=== PATIENT | female | born 1945 | race Caucasian/White ===

== ENCOUNTER 2018-08-31 09:36 | Emergency (ER) | payer MEDICARE, BC ==
[~2018-08-31] VITALS: Ht 157.5 cm; Wt 99.1 kg
[2018-08-31] MEDS ORDERED: TENORMIN PO (09:55)
[2018-08-31] MEDS ORDERED: HYDROCHLOROT25 MG PO (09:55)
[2018-08-31] MEDS ORDERED: PRAMIPEXOLE0.5 MG PO (09:56)
[2018-08-31] MEDS ORDERED: ATORVASTATIN CA40 MG PO (09:56)
[2018-08-31] MEDS ORDERED: ASPIRIN81 MG PO (09:56)
[2018-08-31] MEDS ORDERED: CITALOPRAM40 MG PO (09:56)
[2018-08-31] MEDS ORDERED: OMEPRAZOLE20 M2 PO (09:57)
[2018-08-31] MEDS ORDERED: MULTI VIT PO (09:57)
[2018-08-31 10:36] LABS: HEMATOCRIT 27.6 % (37.0-47.0); HEMOGLOBIN 9.4 g/dl (12.0-16.0); IMMATURE GRANULOCYTES 0.5 % (0.0-5.0); MEAN CORPUSCULAR HGB 34.7 pG CALC (26.0-32.0); MEAN CORPUSCULAR HGB CONC 34.1 g/L CALC (32.0-36.0); NEUT# 2.47 thou/uL (2.00-7.15); RED BLOOD COUNT 2.71 mill/uL (4.20-5.60); RED CELL DISTRI WIDTH 13.7 % (11.5-15.5)
[2018-08-31 10:40] LABS: MEAN CELL VOLUME 101.8 fL CALC (80.0-100.0)
[2018-08-31 10:57] LABS: URINE BILIRUBIN - DIPSTICK NEGATIVE (NEGATIVE); URINE BLOOD DIPSTICK NEGATIVE (NEGATIVE); URINE COLOR YELLOW; URINE GLUCOSE - DIPSTICK NEGATIVE (NEGATIVE); URINE KETONE NEGATIVE (NEGATIVE); URINE PROTEIN - DIPSTICK NEGATIVE (NEG-TRACE); URINE SPECIFIC GRAVITY <=1.005; URINE UROBILINOGEN - DIPSTICK 0.2 E.U./dL (0.2)
[2018-08-31 11:04] LABS: ALBUMIN 3.6 g/dL (3.2-5.0); ALKALINE PHOSPHATASE 79 u/l (38-126); ANION GAP 11 (6-22 (CALC)); BILIRUBIN, TOTAL 0.4 mg/dL (0.0-1.4); BUN 17 mg/dL (8-23); BUN/CREATININE RATIO 20 (12-20 (CALC)); CARBON DIOXIDE 29 mmol/l (22-30); CHLORIDE 100 mmol/l (95-108); CREATININE 0.9 mg/dL (0.5-1.0); GFR > 60 ML/MIN (>=60 (CALC)); GFR FOR AFR.AMER. > 60 ML/MIN (>=60 (CALC)); POTASSIUM 3.8 mmol/l (3.5-5.1); SGOT/AST 29 u/l (9-36); SODIUM 137 mmol/l (137-146); TOTAL PROTEIN 6.6 g/dL (6.3-8.2)
[2018-08-31 11:05] LABS: URINE CLARITY CLOUDY; URINE LEUK ESTERASE SMALL (NEGATIVE); URINE NITRITE - DIPSTICK POSITIVE (Negative)
[2018-08-31 11:19] LABS: URINE BACTERIA MANY hpf; URINE SQUAMOUS EPITHELIAL CELL FEW EPI/hpf (0-FEW)
[2018-08-31] MEDS ORDERED: PROVENTIL108 MCG/AC IN (11:52)
[2018-08-31] MEDS ORDERED: LEVAQUIN750 MG PO (11:52)
[2018-08-31 11:58] VITALS: BP 140/64
== END 2018-08-31 12:00 | disposition home or self-care (01) ==
LOC: ED 09:36
PROVIDERS: Emergency Medicine
DX: N39.0 Urinary tract infection, site not specified (principal); R05 Cough; J40 Bronchitis, not specified as acute or chronic; R50.9 Fever, unspecified; R30.0 Dysuria; B96.4 Proteus (mirabilis) (morganii) as the cause of diseases classified elsewhere

== ENCOUNTER 2020-11-22 06:05 | Inpatient (IN) | payer MEDICARE, BC ==
[2020-11-22] VITALS (9 sets, daily range): BP systolic 142–149; BP diastolic 64–79
[~2020-11-22] VITALS: Ht 157.5 cm; Wt 86.2 kg
[~2020-11-22 06:05] MED LIST: ASPIRIN81 MG PO; ATORVASTATIN CA40 MG PO; CITALOPRAM40 MG PO; HYDROCHLOROT25 MG PO; IBRANCE PO; IBUPROFEN200 MG PO; IPRATROPIUM BROMIDE IN; LEVAQUIN750 MG PO; MULTI VIT PO; OMEPRAZOLE20 M2 PO; PRAMIPEXOLE DI0.5 MG PO; PROVENTIL108 MCG/AC IN; TENORMIN PO
[2020-11-23] VITALS: BP 129/63
[2020-11-23 04:22] VITALS: BP 156/66
[2020-11-23 05:56] LABS: HEMATOCRIT 29.1 % (37.0-47.0); HEMOGLOBIN 9.7 g/dl (12.0-16.0)
[2020-11-23 08:35] VITALS: BP 151/81
[2020-11-23 08:41] VITALS: BP 151/81
== END 2020-11-23 14:26 | disposition home health service (06) | DRG 470 ==
LOC: ORM 06:05 → MS2 10:45 → ORM 13:45 → MS2 11-23 14:26
PROVIDERS: ADMIT Internal Medicine; ATTEND Orthopaedic Surgery
PROC: 0SRC0J9 Replacement of Right Knee Joint with Synthetic Substitute, Cemented, Open Approach (ICD-10-PCS; principal; 2020-11-22)
PROC: 3E0T3BZ Introduction of Anesthetic Agent into Peripheral Nerves and Plexi, Percutaneous Approach (ICD-10-PCS; 2020-11-22)
DX: M17.11 Unilateral primary osteoarthritis, right knee (principal); M70.42 Prepatellar bursitis, left knee; I10 Essential (primary) hypertension; J44.9 Chronic obstructive pulmonary disease, unspecified; K59.00 Constipation, unspecified; E78.5 Hyperlipidemia, unspecified; K44.9 Diaphragmatic hernia without obstruction or gangrene; G25.81 Restless legs syndrome; K21.9 Gastro-esophageal reflux disease without esophagitis; Z85.3 Personal history of malignant neoplasm of breast; Z87.891 Personal history of nicotine dependence; Z96.652 Presence of left artificial knee joint; Z20.822 Contact with and (suspected) exposure to COVID-19
CPT/HCPCS: J0131

== ENCOUNTER 2021-08-28 13:07 | Emergency (ER) | payer MEDICARE, BC ==
[~2021-08-28] VITALS: Ht 157.5 cm; Wt 86.4 kg
[2021-08-28 14:00] LABS: HEMATOCRIT 32.4 % (37.0-47.0); HEMOGLOBIN 10.6 g/dl (12.0-16.0); IMMATURE GRANULOCYTES 0.3 % (0.0-5.0); MEAN CELL VOLUME 105.5 fL CALC (80.0-100.0); MEAN CORPUSCULAR HGB 34.5 pG CALC (26.0-32.0); MEAN CORPUSCULAR HGB CONC 32.7 g/dL CAL (32.0-36.0); NEUT# 2.41 thou/uL (2.00-7.15); RED BLOOD COUNT 3.07 mill/uL (4.20-5.60); RED CELL DISTRI WIDTH 14.7 % (11.5-15.5)
[2021-08-28 14:13] LABS: ALBUMIN 3.9 g/dL (3.2-5.0); ALKALINE PHOSPHATASE 89 u/l (38-126); ANION GAP 10 (6-22 (CALC)); BILIRUBIN, TOTAL 0.5 mg/dL (0.0-1.4); BUN 18 mg/dL (8-23); BUN/CREATININE RATIO 23 (12-20 (CALC)); CARBON DIOXIDE 30 mmol/l (22-30); CHLORIDE 99 mmol/l (95-108); CREATININE 0.8 mg/dL (0.5-1.0); GFR > 60 ML/MIN (>=60 (CALC)); GFR FOR AFR.AMER. > 60 ML/MIN (>=60 (CALC)); POTASSIUM 4.1 mmol/l (3.5-5.1); SGOT/AST 23 u/l (9-36); SODIUM 135 mmol/l (137-146); TOTAL PROTEIN 6.9 g/dL (6.3-8.2)
[2021-08-28 14:40] LABS: URINE BILIRUBIN - DIPSTICK NEGATIVE (NEGATIVE); URINE BLOOD DIPSTICK NEGATIVE (NEGATIVE); URINE COLOR YELLOW; URINE GLUCOSE - DIPSTICK NEGATIVE (NEGATIVE); URINE KETONE NEGATIVE (NEGATIVE); URINE LEUK ESTERASE NEGATIVE (NEGATIVE); URINE PH 6.5 (4.5-8.0); URINE PROTEIN - DIPSTICK NEGATIVE (NEG-TRACE); URINE SPECIFIC GRAVITY 1.015; URINE UROBILINOGEN - DIPSTICK 0.2 E.U./dL (0.2)
[2021-08-28 14:41] LABS: URINE NITRITE - DIPSTICK NEGATIVE (Negative)
[2021-08-28 16:01] VITALS: BP 126/58
== END 2021-08-28 15:52 | disposition home or self-care (01) ==
LOC: ED 13:07
PROVIDERS: Emergency Medicine
DX: D61.811 Other drug-induced pancytopenia (principal); T50.905A Adverse effect of unspecified drugs, medicaments and biological substances, initial encounter; R52 Pain, unspecified; C50.919 Malignant neoplasm of unspecified site of unspecified female breast; C79.51 Secondary malignant neoplasm of bone; I10 Essential (primary) hypertension; K21.9 Gastro-esophageal reflux disease without esophagitis; E78.00 Pure hypercholesterolemia, unspecified

== ENCOUNTER 2021-10-24 09:18 | Emergency (ER) | payer MEDICARE, BC ==
[~2021-10-24] VITALS: Ht 157.5 cm; Wt 65.0 kg
[~2021-10-24 09:18] MED LIST changes: +CIPROFLOXACN500 MG PO; +METRONIDAZOLE500 MG PO
[2021-10-24 10:13] LABS: HEMATOCRIT 29.6 % (37.0-47.0); HEMOGLOBIN 10.1 g/dl (12.0-16.0); MEAN CELL VOLUME 107.6 fL CALC (80.0-100.0); MEAN CORPUSCULAR HGB 36.7 pG CALC (26.0-32.0); MEAN CORPUSCULAR HGB CONC 34.1 g/dL CAL (32.0-36.0); NEUT# 1.8 thou/uL (2.00-7.15); RED BLOOD COUNT 2.75 mill/uL (4.20-5.60); RED CELL DISTRI WIDTH 14.7 % (11.5-15.5)
[2021-10-24 10:15] LABS: GFR > 60 ML/MIN (>=60 (CALC)); GFR FOR AFR.AMER. > 60 ML/MIN (>=60 (CALC))
[2021-10-24 10:21] LABS: URINE BILIRUBIN - DIPSTICK NEGATIVE (NEGATIVE); URINE BLOOD DIPSTICK NEGATIVE (NEGATIVE); URINE COLOR YELLOW; URINE GLUCOSE - DIPSTICK NEGATIVE (NEGATIVE); URINE KETONE NEGATIVE (NEGATIVE); URINE LEUK ESTERASE NEGATIVE (NEGATIVE); URINE PROTEIN - DIPSTICK NEGATIVE (NEG-TRACE); URINE UROBILINOGEN - DIPSTICK 0.2 E.U./dL (0.2)
[2021-10-24 10:24] LABS: URINE NITRITE - DIPSTICK NEGATIVE (Negative)
[2021-10-24 10:26] LABS: ALBUMIN 3.8 g/dL (3.2-5.0); ALKALINE PHOSPHATASE 87 u/l (38-126); ANION GAP 9 (6-22 (CALC)); BILIRUBIN, TOTAL 0.5 mg/dL (0.0-1.4); BUN 17 mg/dL (8-23); BUN/CREATININE RATIO 18 (12-20 (CALC)); CARBON DIOXIDE 32 mmol/l (22-30); CHLORIDE 100 mmol/l (95-108); CREATININE 0.9 mg/dL (0.5-1.0); GFR > 60 ML/MIN (>=60 (CALC)); GFR FOR AFR.AMER. > 60 ML/MIN (>=60 (CALC)); POTASSIUM 4.2 mmol/l (3.5-5.1); SGOT/AST 24 u/l (9-36); SODIUM 137 mmol/l (137-146); TOTAL PROTEIN 6.8 g/dL (6.3-8.2)
[2021-10-24] MEDS ORDERED: PREDNISONE50 MG PO (13:05)
[2021-10-24] MEDS ORDERED: ZPAK PO (13:05)
[2021-10-24 17:06] VITALS: BP 138/63
== END 2021-10-24 13:30 | disposition home or self-care (01) ==
LOC: ED 09:18
PROVIDERS: Family Medicine
DX: J06.9 Acute upper respiratory infection, unspecified (principal); I10 Essential (primary) hypertension; J44.9 Chronic obstructive pulmonary disease, unspecified; E78.00 Pure hypercholesterolemia, unspecified; K21.9 Gastro-esophageal reflux disease without esophagitis; Z85.3 Personal history of malignant neoplasm of breast; Z86.16 Personal history of COVID-19; Z20.822 Contact with and (suspected) exposure to COVID-19
CPT/HCPCS: Q9967

== ENCOUNTER 2022-07-25 13:57 | Emergency (ER) | payer MEDICARE, BC ==
[2022-07-25] VITALS (15 sets, daily range): BP systolic 122–189; BP diastolic 58–95
[~2022-07-25] VITALS: Ht 157.5 cm; Wt 88.0 kg
[~2022-07-25 13:57] MED LIST changes: +PREDNISONE50 MG PO; +ZPAK PO
[2022-07-25 14:46] LABS: HEMATOCRIT 29.8 % (37.0-47.0); HEMOGLOBIN 10.3 g/dl (12.0-16.0); IMMATURE GRANULOCYTES 0.3 % (0.0-5.0); MEAN CELL VOLUME 102.1 fL CALC (80.0-100.0); MEAN CORPUSCULAR HGB 35.3 pG CALC (26.0-32.0); MEAN CORPUSCULAR HGB CONC 34.6 g/dL CAL (32.0-36.0); RED BLOOD COUNT 2.92 mill/uL (4.20-5.60); RED CELL DISTRI WIDTH 13.2 % (11.5-15.5)
[2022-07-25 15:14] LABS: ALKALINE PHOSPHATASE 94 u/l (38-126); ANION GAP 9 (6-22 (CALC)); BUN 29 mg/dL (8-23); BUN/CREATININE RATIO 28 (12-20 (CALC)); CARBON DIOXIDE 30 mmol/l (22-30); CHLORIDE 99 mmol/l (95-108); CREATININE 1.1 mg/dL (0.5-1.0); GFR FOR AFR.AMER. 58 ML/MIN (>=60 (CALC)); GFR OTHER RACES 48 ML/MIN (>=60 (CALC)); POTASSIUM 4.1 mmol/l (3.5-5.1); SGOT/AST 26 u/l (9-36); SODIUM 134 mmol/l (137-146); TOTAL PROTEIN 6.6 g/dL (6.3-8.2)
[2022-07-25 15:15] LABS: BILIRUBIN, TOTAL 0.2 mg/dL (0.0-1.4)
[2022-07-25] MEDS ORDERED: INDOCIN25 MG PO (19:41)
[2022-07-25] MEDS ORDERED: ZPAK PO (19:41)
== END 2022-07-25 20:00 | disposition home or self-care (01) ==
LOC: ED 13:57
PROVIDERS: Family Medicine
DX: R07.81 Pleurodynia (principal); I10 Essential (primary) hypertension; J44.9 Chronic obstructive pulmonary disease, unspecified; C50.919 Malignant neoplasm of unspecified site of unspecified female breast; K21.9 Gastro-esophageal reflux disease without esophagitis; K44.9 Diaphragmatic hernia without obstruction or gangrene; E78.00 Pure hypercholesterolemia, unspecified
CPT/HCPCS: Q9967

== ENCOUNTER 2023-03-11 09:30 | Emergency (ER) | payer MEDICARE, BC ==
[~2023-03-11] VITALS: Ht 157.5 cm; Wt 72.0 kg
[2023-03-11] VITALS (12 sets, daily range): BP systolic 137–164; BP diastolic 56–75
[~2023-03-11 09:30] MED LIST changes: +INDOCIN25 MG PO
[2023-03-11 10:23] LABS: BASO% 1.1 % (0-3); EOS% 0.5 % (0-8); HEMATOCRIT 31.7 % (37.0-47.0); HEMOGLOBIN 10.7 g/dl (12.0-16.0); IMMATURE GRANULOCYTES 0.5 % (0.0-5.0); LYMPH% 18.4 % (15-41); MEAN CELL VOLUME 101.6 fL CALC (80.0-100.0); MEAN CORPUSCULAR HGB 34.3 pG CALC (26.0-32.0); MEAN CORPUSCULAR HGB CONC 33.8 g/dL CAL (32.0-36.0); MONO% 2.5 % (2-13); NEUT# 2.81 thou/uL (2.00-7.15); RED BLOOD COUNT 3.12 mill/uL (4.20-5.60); RED CELL DISTRI WIDTH 12.8 % (11.5-15.5)
[2023-03-11 10:33] LABS: ALBUMIN 3.9 g/dL (3.2-5.0); ALKALINE PHOSPHATASE 94 u/l (38-126); ANION GAP 10 (6-22 (CALC)); BILIRUBIN, TOTAL 0.3 mg/dL (0.02-1.3); BUN 22 mg/dL (8-23); BUN/CREATININE RATIO 22 (12-20 (CALC)); CARBON DIOXIDE 30 mmol/l (22-30); CHLORIDE 98 mmol/l (95-108); GFR FOR AFR.AMER. > 60 ML/MIN (>=60 (CALC)); GFR OTHER RACES 53 ML/MIN (>=60 (CALC)); POTASSIUM 4.3 mmol/l (3.5-5.1); SGOT/AST 30 u/l (9-36); SODIUM 133 mmol/l (137-146); TOTAL PROTEIN 6.6 g/dL (6.3-8.2)
[2023-03-11 12:03] LABS: URINE BILIRUBIN - DIPSTICK NEGATIVE (NEGATIVE); URINE BLOOD DIPSTICK NEGATIVE (NEGATIVE); URINE COLOR YELLOW; URINE GLUCOSE - DIPSTICK NEGATIVE (NEGATIVE); URINE KETONE NEGATIVE (NEGATIVE); URINE LEUK ESTERASE NEGATIVE (NEGATIVE); URINE PROTEIN - DIPSTICK NEGATIVE (NEG-TRACE); URINE SPECIFIC GRAVITY <=1.005; URINE UROBILINOGEN - DIPSTICK 0.2 E.U./dL (0.2)
[2023-03-11 12:11] LABS: URINE NITRITE - DIPSTICK POSITIVE (Negative)
[2023-03-11 12:12] LABS: URINE BACTERIA MODERATE hpf
[2023-03-11] MEDS ORDERED: OMNI-PAC300 MG PO (12:28)
[2023-03-11] MEDS ORDERED: TRAMADOL HYDROC50 M1 PO (12:28)
== END 2023-03-11 13:07 | disposition home or self-care (01) ==
LOC: ED 09:30
PROVIDERS: Family Medicine
DX: N39.0 Urinary tract infection, site not specified (principal); B96.1 Klebsiella pneumoniae [K. pneumoniae] as the cause of diseases classified elsewhere; M54.50 Low back pain, unspecified; I10 Essential (primary) hypertension; E11.9 Type 2 diabetes mellitus without complications; C50.919 Malignant neoplasm of unspecified site of unspecified female breast; C79.51 Secondary malignant neoplasm of bone; J44.9 Chronic obstructive pulmonary disease, unspecified; K21.9 Gastro-esophageal reflux disease without esophagitis; E78.00 Pure hypercholesterolemia, unspecified
CPT/HCPCS: Q9967

== ENCOUNTER 2023-07-10 14:19 | Emergency (ER) | payer MEDICARE, BC ==
[~2023-07-10] VITALS: Ht 157.5 cm; Wt 84.0 kg
[2023-07-10] VITALS (15 sets, daily range): BP systolic 97–181; BP diastolic 65–85
[~2023-07-10 14:19] MED LIST changes: +OMNI-PAC300 MG PO; +TRAMADOL HYDROC50 M1 PO
[2023-07-10 15:24] LABS: BASO% 0.9 % (0-3); EOS% 0.6 % (0-8); HEMATOCRIT 28.7 % (37.0-47.0); HEMOGLOBIN 9.7 g/dl (12.0-16.0); IMMATURE GRANULOCYTES 0.3 % (0.0-5.0); LYMPH% 8.4 % (15-41); MEAN CELL VOLUME 105.5 fL CALC (80.0-100.0); MEAN CORPUSCULAR HGB 35.7 pG CALC (26.0-32.0); MEAN CORPUSCULAR HGB CONC 33.8 g/dL CAL (32.0-36.0); MONO% 8.4 % (2-13); NEUT# 2.61 thou/uL (2.00-7.15); NEUT% 81.4 % (42-76); RED BLOOD COUNT 2.72 mill/uL (4.20-5.60); RED CELL DISTRI WIDTH 13.7 % (11.5-15.5)
[2023-07-10 15:34] LABS: ALBUMIN 3.8 g/dL (3.2-5.0); ALKALINE PHOSPHATASE 82 u/l (38-126); ANION GAP 9 (6-22 (CALC)); BILIRUBIN, TOTAL 0.4 mg/dL (0.02-1.3); BUN 21 mg/dL (8-23); BUN/CREATININE RATIO 21 (12-20 (CALC)); CARBON DIOXIDE 30 mmol/l (22-30); CHLORIDE 98 mmol/l (95-108); GFR FOR AFR.AMER. > 60 ML/MIN (>=60 (CALC)); GFR OTHER RACES 53 ML/MIN (>=60 (CALC)); POTASSIUM 3.9 mmol/l (3.5-5.1); SGOT/AST 30 u/l (9-36); SODIUM 132 mmol/l (137-146); TOTAL PROTEIN 6.5 g/dL (6.3-8.2)
[2023-07-10] MEDS ORDERED: ZPAK PO (18:30)
[2023-07-10] MEDS ORDERED: AMOX/K CLAV875 M1 PO (18:30)
[2023-07-10] MEDS ORDERED: PAXLOVID PO (18:30)
== END 2023-07-10 18:55 | disposition left against medical advice (07) ==
LOC: ED 14:19
PROVIDERS: Family Medicine
DX: U07.1 COVID-19 (principal); J12.82 Pneumonia due to coronavirus disease 2019; J44.0 Chronic obstructive pulmonary disease with (acute) lower respiratory infection; C50.912 Malignant neoplasm of unspecified site of left female breast; C79.51 Secondary malignant neoplasm of bone; R42 Dizziness and giddiness; I10 Essential (primary) hypertension; K21.9 Gastro-esophageal reflux disease without esophagitis; E78.00 Pure hypercholesterolemia, unspecified; Z53.29 Procedure and treatment not carried out because of patient's decision for other reasons
CPT/HCPCS: Q9967

== ENCOUNTER 2023-07-17 14:07 | Emergency (ER) | payer MEDICARE, BC ==
[~2023-07-17] VITALS: Ht 157.5 cm; Wt 83.9 kg
[2023-07-17] VITALS (7 sets, daily range): BP systolic 123–149; BP diastolic 52–87
[~2023-07-17 14:07] MED LIST changes: +AMOX/K CLAV875 M1 PO; +PAXLOVID PO
[2023-07-17] MEDS ORDERED: OS-CAL 500500 M1 PO (14:25)
[2023-07-17] MEDS ORDERED: VITAMIN D-32000 UNI1 PO (14:25)
[2023-07-17] MEDS ORDERED: ZOFRAN4 MG/TAB PO (16:45)
[2023-07-17] MEDS ORDERED: METRONIDAZOLE250 MG PO (16:45)
[2023-07-17] MEDS ORDERED: [UNRECOGNIZED DRUG - CODE] PO (16:45)
== END 2023-07-17 17:18 | disposition home or self-care (01) ==
LOC: ED 14:07
DX: U07.1 COVID-19 (principal); A04.72 Enterocolitis due to Clostridium difficile, not specified as recurrent; I10 Essential (primary) hypertension; J44.9 Chronic obstructive pulmonary disease, unspecified; E78.00 Pure hypercholesterolemia, unspecified; Z99.81 Dependence on supplemental oxygen

== ENCOUNTER 2023-07-19 11:30 | Emergency (ER) | payer MEDICARE, BC ==
[2023-07-19] VITALS (10 sets, daily range): BP systolic 127–163; BP diastolic 57–106
[~2023-07-19] VITALS: Ht 157.5 cm; Wt 82.5 kg
[~2023-07-19 11:30] MED LIST changes: +METRONIDAZOLE250 MG PO; +OS-CAL 500500 M1 PO; +VITAMIN D-32000 UNI1 PO; +ZOFRAN4 MG/TAB PO; +[UNRECOGNIZED DRUG - CODE] PO
[2023-07-19 12:37] LABS: BASO% 0.7 % (0-3); EOS% 0.4 % (0-8); HEMATOCRIT 26.9 % (37.0-47.0); HEMOGLOBIN 9.2 g/dl (12.0-16.0); IMMATURE GRANULOCYTES 0.4 % (0.0-5.0); LYMPH% 16.8 % (15-41); MEAN CELL VOLUME 105.1 fL CALC (80.0-100.0); MEAN CORPUSCULAR HGB 35.9 pG CALC (26.0-32.0); MEAN CORPUSCULAR HGB CONC 34.2 g/dL CAL (32.0-36.0); MONO% 5.7 % (2-13); NEUT# 3.49 thou/uL (2.00-7.15); RED BLOOD COUNT 2.56 mill/uL (4.20-5.60)
[2023-07-19 13:22] LABS: ALBUMIN 3.4 g/dL (3.2-5.0); ALKALINE PHOSPHATASE 64 u/l (38-126); ANION GAP 7 (6-22 (CALC)); BUN 16 mg/dL (8-23); BUN/CREATININE RATIO 17 (12-20 (CALC)); CARBON DIOXIDE 34 mmol/l (22-30); CHLORIDE 97 mmol/l (95-108); CREATININE 0.9 mg/dL (0.5-1.0); GFR FOR AFR.AMER. > 60 ML/MIN (>=60 (CALC)); GFR OTHER RACES 60 ML/MIN (>=60 (CALC)); POTASSIUM 4.3 mmol/l (3.5-5.1); SGOT/AST 30 u/l (9-36); SODIUM 134 mmol/l (137-146); TOTAL PROTEIN 6.3 g/dL (6.3-8.2)
[2023-07-19 13:25] LABS: BILIRUBIN, TOTAL 0.2 mg/dL (0.02-1.3)
[2023-07-19 13:45] LABS: URINE BILIRUBIN - DIPSTICK Negative (NEGATIVE); URINE BLOOD DIPSTICK Negative (NEGATIVE); URINE GLUCOSE - DIPSTICK Negative (NEGATIVE); URINE KETONE Negative (NEGATIVE); URINE LEUK ESTERASE Trace (NEGATIVE); URINE NITRITE - DIPSTICK Negative (Negative); URINE PH 5.5 (4.5-8.0); URINE PROTEIN - DIPSTICK Negative (NEG-TRACE); URINE UROBILINOGEN - DIPSTICK 0.2 E.U./dL (0.2)
[2023-07-19 13:52] LABS: URINE COLOR Yellow
== END 2023-07-19 14:23 | disposition home or self-care (01) ==
LOC: ED 11:30
PROVIDERS: Family Medicine
DX: K57.32 Diverticulitis of large intestine without perforation or abscess without bleeding (principal); I10 Essential (primary) hypertension; J44.9 Chronic obstructive pulmonary disease, unspecified; E78.00 Pure hypercholesterolemia, unspecified; K21.9 Gastro-esophageal reflux disease without esophagitis; K44.9 Diaphragmatic hernia without obstruction or gangrene

== ENCOUNTER 2024-10-19 13:59 | Emergency (ER) | payer MEDICARE, BC ==
[~2024-10-19] VITALS: Ht 157.5 cm; Wt 77.1 kg
[2024-10-19] VITALS (9 sets, daily range): BP systolic 124–168; BP diastolic 52–81
[2024-10-19] MEDS ORDERED: ACETAMINOPHEN 325 MG/TAB PO ONE (14:30)
[2024-10-19 14:42] LABS: BASO% 0.2 % (0-3); EOS% 0.2 % (0-8); HEMATOCRIT 30.4 % (37.0-47.0); HEMOGLOBIN 10.3 g/dl (12.0-16.0); IMMATURE GRANULOCYTES 0.2 % (0.0-5.0); LYMPH% 6.5 % (15-41); MEAN CELL VOLUME 102.4 fL CALC (80.0-100.0); MEAN CORPUSCULAR HGB 34.7 pG CALC (26.0-32.0); MEAN CORPUSCULAR HGB CONC 33.9 g/dL CAL (32.0-36.0); MONO% 14.1 % (2-13); NEUT# 3.51 thou/uL (2.00-7.15); NEUT% 78.8 % (42-76); RED BLOOD COUNT 2.97 mill/uL (4.20-5.60); RED CELL DISTRI WIDTH 13.4 % (11.5-15.5)
[2024-10-19 14:54] LABS: ALKALINE PHOSPHATASE 101 u/l (38-126); ANION GAP 11 (6-22 (CALC)); BUN 22 mg/dL (8-23); BUN/CREATININE RATIO 22 (12-20 (CALC)); CARBON DIOXIDE 35 mmol/l (22-30); CHLORIDE 93 mmol/l (95-108); ESTIMATED GFR 57 ML/MIN (>=90 (CALC)); SGOT/AST 28 u/l (9-36); SODIUM 135 mmol/l (137-146); TOTAL PROTEIN 7.1 g/dL (6.3-8.2)
[2024-10-19 14:55] LABS: BILIRUBIN, TOTAL 0.6 mg/dL (0.02-1.3)
[2024-10-19] MEDS ORDERED: GUAIFENESIN 200 MG/10 ML UDC PO ONE (15:55)
[2024-10-19] MEDS ORDERED: PIPERACILLIN Sodium-Tazobactam 3.375 GM in SODIUM CHLORIDE 0.9% 100 ML IV ONE (16:40)
[2024-10-19 17:08] LABS: URINE BILIRUBIN - DIPSTICK Negative (NEGATIVE); URINE BLOOD DIPSTICK Negative (NEGATIVE); URINE COLOR Yellow; URINE GLUCOSE - DIPSTICK Negative (NEGATIVE); URINE KETONE Trace mg/dL (NEGATIVE); URINE LEUK ESTERASE Small (NEGATIVE); URINE NITRITE - DIPSTICK Negative (Negative); URINE PROTEIN - DIPSTICK Trace mg/dL (NEG-TRACE); URINE SPECIFIC GRAVITY 1.015
[2024-10-19 17:14] LABS: URINE BACTERIA MANY hpf
[2024-10-19 17:16] LABS: URINE HYALINE CAST RARE lpf (NONE-RARE); URINE SQUAMOUS EPITHELIAL CELL FEW EPI/hpf (0-FEW)
[2024-10-19] MEDS ORDERED: MACROBID100 M1 PO (18:00)
--- NOTE | 2024-10-20 13:53 | NUR ---
ESBL patient identified. Patient was discharged home with prescription for nitrofurantoin 100 mg po bid x 5 days. No antibiotic changes needed at this time.
== END 2024-10-19 18:31 | disposition home or self-care (01) ==
LOC: ED 13:59
PROVIDERS: Family Medicine; Nurse Practitioner Family
DX: N39.0 Urinary tract infection, site not specified (principal); B96.1 Klebsiella pneumoniae [K. pneumoniae] as the cause of diseases classified elsewhere; Z16.12 Extended spectrum beta lactamase (ESBL) resistance; I10 Essential (primary) hypertension; G25.81 Restless legs syndrome; K21.9 Gastro-esophageal reflux disease without esophagitis; K44.9 Diaphragmatic hernia without obstruction or gangrene; J44.9 Chronic obstructive pulmonary disease, unspecified; C50.919 Malignant neoplasm of unspecified site of unspecified female breast; C79.51 Secondary malignant neoplasm of bone; E78.00 Pure hypercholesterolemia, unspecified; Z99.81 Dependence on supplemental oxygen; Z20.822 Contact with and (suspected) exposure to COVID-19
CPT/HCPCS: J2543

== ENCOUNTER 2024-10-21 10:18 | Observation (INO) | payer MEDICARE, BC ==
[~2024-10-21] VITALS: Ht 157.5 cm; Wt 78.8 kg
[2024-10-21] VITALS (19 sets, daily range): BP systolic 104–169; BP diastolic 57–94
[~2024-10-21 10:18] MED LIST changes: +MACROBID100 M1 PO
[2024-10-21] MEDS ORDERED: Levofloxacin 750 mg Premix 150 ML IV ONE (10:40)
[2024-10-21 11:18] LABS: BASO% 0.7 % (0-3); EOS% 0.5 % (0-8); HEMATOCRIT 32.2 % (37.0-47.0); IMMATURE GRANULOCYTES 0.5 % (0.0-5.0); MEAN CELL VOLUME 100.3 fL CALC (80.0-100.0); MEAN CORPUSCULAR HGB 34.3 pG CALC (26.0-32.0); MEAN CORPUSCULAR HGB CONC 34.2 g/dL CAL (32.0-36.0); MONO% 15.1 % (2-13); NEUT# 3.15 thou/uL (2.00-7.15); NEUT% 72.2 % (42-76); RED BLOOD COUNT 3.21 mill/uL (4.20-5.60); RED CELL DISTRI WIDTH 13.2 % (11.5-15.5)
[2024-10-21 11:33] LABS: ALBUMIN 3.8 g/dL (3.2-5.0); BILIRUBIN, TOTAL 0.5 mg/dL (0.02-1.3); POTASSIUM 4.5 mmol/l (3.5-5.1); TOTAL PROTEIN 6.7 g/dL (6.3-8.2)
[2024-10-21] MEDS ORDERED: MAGNESIUM HYDROXIDE 30 ML UDC PO PRN (12:45)
[2024-10-21] MEDS ORDERED: ACETAMINOPHEN 325 MG/TAB PO PRN (12:45)
[2024-10-21] MEDS ORDERED: SODIUM CHLORIDE 0.9% 1,000 ML IV PRN (12:45)
[2024-10-21] MEDS ORDERED: Meropenem 1 GM in SODIUM CHLORIDE 0.9% 100 ML IV SCH (14:00)
[2024-10-21] MEDS ORDERED: IPRATROPIUM-Albuterol 0.5MG-2.5MG/3 ML NEB PRN (14:20)
[2024-10-21 15:08] LABS: URINE BILIRUBIN - DIPSTICK Negative (NEGATIVE); URINE BLOOD DIPSTICK Negative (NEGATIVE); URINE GLUCOSE - DIPSTICK Negative (NEGATIVE); URINE KETONE Negative (NEGATIVE); URINE LEUK ESTERASE Trace (NEGATIVE); URINE NITRITE - DIPSTICK Negative (Negative); URINE PROTEIN - DIPSTICK Trace mg/dL (NEG-TRACE)
[2024-10-21 15:18] LABS: URINE COLOR Yellow
[2024-10-21] MEDS ORDERED: ENOXAPARIN SODIUM 40 MG/0.4 ML SYR SC SCH (21:00)
[2024-10-22 03:37] VITALS: BP 162/67
[2024-10-22 05:41] LABS: ALBUMIN 3.4 g/dL (3.2-5.0); BILIRUBIN, TOTAL 0.4 mg/dL (0.02-1.3); MAGNESIUM 1.9 mg/dL (1.6-2.3); TOTAL PROTEIN 6.1 g/dL (6.3-8.2)
[2024-10-22 05:42] LABS: HEMATOCRIT 30.4 % (37.0-47.0); HEMOGLOBIN 10.1 g/dl (12.0-16.0); IMMATURE GRANULOCYTES 0.5 % (0.0-5.0); LYMPH% 16.1 % (15-41); MEAN CELL VOLUME 103.4 fL CALC (80.0-100.0); MEAN CORPUSCULAR HGB 34.4 pG CALC (26.0-32.0); MEAN CORPUSCULAR HGB CONC 33.2 g/dL CAL (32.0-36.0); MONO% 22.1 % (2-13); NEUT# 2.39 thou/uL (2.00-7.15); NEUT% 59.3 % (42-76); RED BLOOD COUNT 2.94 mill/uL (4.20-5.60); RED CELL DISTRI WIDTH 13.1 % (11.5-15.5)
[2024-10-22 07:13] VITALS: BP 128/49
[2024-10-22] MEDS ORDERED: Zaleplon 5 MG/CAP PO PRN (08:35)
[2024-10-22] MEDS ORDERED: ATORVASTATIN CALCIUM 40 MG/TAB PO SCH (09:00)
[2024-10-22] MEDS ORDERED: ATENOLOL 50 MG/TAB PO SCH (09:00)
[2024-10-22] MEDS ORDERED: PANTOPRAZOLE SODIUM Sesquihydr 40 MG/TAB PO SCH (09:00)
[2024-10-22] MEDS ORDERED: ASPIRIN 81 MG/TAB PO SCH (09:00)
[2024-10-22] MEDS ORDERED: hydroCHLOROthiazide 25 MG/TAB PO SCH (09:00)
[2024-10-22] MEDS ORDERED: Polyethylene Glycol 3350 17 GM/PKT PO PRN (10:30)
[2024-10-22] MEDS ORDERED: DOCUSATE SODIUM 100 MG/CAP PO SCH (11:00)
[2024-10-22 15:57] VITALS: BP 131/70
[2024-10-22 18:24] VITALS: BP 121/60
[2024-10-22 23:16] VITALS: BP 137/46
[2024-10-23] VITALS (7 sets, daily range): BP systolic 144–183; BP diastolic 53–67
[2024-10-23 05:51] LABS: BASO% 1.1 % (0-3); EOS% 1.9 % (0-8); HEMATOCRIT 31.1 % (37.0-47.0); HEMOGLOBIN 10.4 g/dl (12.0-16.0); IMMATURE GRANULOCYTES 0.5 % (0.0-5.0); LYMPH% 22.8 % (15-41); MEAN CELL VOLUME 104.4 fL CALC (80.0-100.0); MEAN CORPUSCULAR HGB 34.9 pG CALC (26.0-32.0); MEAN CORPUSCULAR HGB CONC 33.4 g/dL CAL (32.0-36.0); MONO% 16.8 % (2-13); NEUT# 2.09 thou/uL (2.00-7.15); NEUT% 56.9 % (42-76); RED BLOOD COUNT 2.98 mill/uL (4.20-5.60); RED CELL DISTRI WIDTH 13.2 % (11.5-15.5)
[2024-10-23 06:07] LABS: ALBUMIN 3.1 g/dL (3.2-5.0); BILIRUBIN, TOTAL 0.4 mg/dL (0.02-1.3); CREATININE 0.9 mg/dL (0.5-1.0); MAGNESIUM 2.1 mg/dL (1.6-2.3); POTASSIUM 3.9 mmol/l (3.5-5.1); TOTAL PROTEIN 5.8 g/dL (6.3-8.2)
[2024-10-24 00:12] VITALS: BP 157/129
[2024-10-24 05:21] VITALS: BP 177/79
[2024-10-24 05:31] VITALS: BP 182/65
[2024-10-24 05:36] LABS: EOS% 1.2 % (0-8); HEMATOCRIT 29.1 % (37.0-47.0); HEMOGLOBIN 9.8 g/dl (12.0-16.0); LYMPH% 30.3 % (15-41); MEAN CELL VOLUME 101.4 fL CALC (80.0-100.0); MEAN CORPUSCULAR HGB 34.1 pG CALC (26.0-32.0); MEAN CORPUSCULAR HGB CONC 33.7 g/dL CAL (32.0-36.0); MONO% 12.3 % (2-13); NEUT# 2.2 thou/uL (2.00-7.15); NEUT% 54.2 % (42-76); RED BLOOD COUNT 2.87 mill/uL (4.20-5.60); RED CELL DISTRI WIDTH 13.3 % (11.5-15.5)
[2024-10-24 05:54] LABS: ALBUMIN 3.1 g/dL (3.2-5.0); BILIRUBIN, TOTAL 0.3 mg/dL (0.02-1.3); CREATININE 0.8 mg/dL (0.5-1.0); POTASSIUM 4.1 mmol/l (3.5-5.1); TOTAL PROTEIN 5.4 g/dL (6.3-8.2)
[2024-10-24 06:51] VITALS: BP 183/76
[2024-10-24] MEDS ORDERED: CIPROFLOXACN500 MG PO (09:01)
[2024-10-24] MEDS ORDERED: FLORASTOR250 M1 PO (09:04)
== END 2024-10-24 12:38 | disposition home or self-care (01) ==
LOC: ED 10:18 → ED-I 12:19 → ED 12:19 → ED-I 12:44 → MS2 19:33
PROVIDERS: Family Medicine; Nurse Practitioner Family; ADMIT Internal Medicine; ATTEND Internal Medicine
DX: R78.81 Bacteremia (principal); N39.0 Urinary tract infection, site not specified; B96.1 Klebsiella pneumoniae [K. pneumoniae] as the cause of diseases classified elsewhere; Z16.12 Extended spectrum beta lactamase (ESBL) resistance; D64.9 Anemia, unspecified; I10 Essential (primary) hypertension; J44.9 Chronic obstructive pulmonary disease, unspecified; C50.919 Malignant neoplasm of unspecified site of unspecified female breast; C79.51 Secondary malignant neoplasm of bone; K44.9 Diaphragmatic hernia without obstruction or gangrene; K21.9 Gastro-esophageal reflux disease without esophagitis; E78.5 Hyperlipidemia, unspecified; G25.81 Restless legs syndrome; Z88.2 Allergy status to sulfonamides
CPT/HCPCS: G0378; J1650

== ENCOUNTER 2024-12-27 14:35 | Inpatient (IN) | payer MEDICARE, BC ==
[~2024-12-27] VITALS: Ht 157.5 cm; Wt 78.0 kg
[2024-12-27] VITALS (14 sets, daily range): BP systolic 154–192; BP diastolic 66–91
[~2024-12-27 14:35] MED LIST changes: +FLORASTOR250 M1 PO
--- NOTE | 2024-12-27 14:49 | NUR ---
PT TO ROOM PER W/C WITH
--- NOTE | 2024-12-27 15:53 | NUR ---
IV started and labs drawn. Pt resting at this time
[2024-12-27] MEDS ORDERED: cefTRIAXone SODIUM 2 GM in SODIUM CHLORIDE 0.9% 100 ML IV ONE (15:55)
[2024-12-27 16:12] LABS: BASO% 1.7 % (0-3); EOS% 0.6 % (0-8); HEMATOCRIT 30.4 % (37.0-47.0); HEMOGLOBIN 10.1 g/dl (12.0-16.0); IMMATURE GRANULOCYTES 0.6 % (0.0-5.0); MEAN CELL VOLUME 102.4 fL CALC (80.0-100.0); MEAN CORPUSCULAR HGB CONC 33.2 g/dL CAL (32.0-36.0); MONO% 18.5 % (2-13); NEUT# 3.55 thou/uL (2.00-7.15); NEUT% 68.6 % (42-76); RED BLOOD COUNT 2.97 mill/uL (4.20-5.60); RED CELL DISTRI WIDTH 13.4 % (11.5-15.5)
[2024-12-27 16:23] LABS: BILIRUBIN, TOTAL 0.4 mg/dL (0.02-1.3); CREATININE 0.9 mg/dL (0.5-1.0); POTASSIUM 4.1 mmol/l (3.5-5.1); TOTAL PROTEIN 6.4 g/dL (6.3-8.2)
[2024-12-27 16:29] LABS: ALBUMIN 3.9 g/dL (3.2-5.0); D-DIMER 0.55 mg/L (0.19-0.60); INTERNATIONAL NORMALIZED RATIO 1.1 RATIO (0.7-1.3); PROTHROMBIN TIME 11.3 SECONDS (9.0-12.5)
[2024-12-27] MEDS ORDERED: SODIUM CHLORIDE 0.9% 1,000 ML IV PRN (16:45)
[2024-12-27] MEDS ORDERED: ACETAMINOPHEN 325 MG/TAB PO PRN (16:45)
[2024-12-27] MEDS ORDERED: MAGNESIUM HYDROXIDE 30 ML UDC PO PRN (16:45)
--- NOTE | 2024-12-27 16:48 | NUR ---
PT INFORMED THAT SHE IS TO BE ADMITTED. WAITING FOR ROOM ASSIGNMENT FROM MED SURG
--- NOTE | 2024-12-27 17:29 | NUR ---
CALLED AND GAVE REPORT TO JAILENE TREJO LPN
--- NOTE | 2024-12-27 17:38 | NUR ---
PT ARRIVED TO THE UNIT VIA STRETCHER, PT AMBULATED FROM THE STRETCHER TO THE BED WITH A SLOW UNSTEADY GAIT, PT IS A&O X3, PUPILS PERRL, RESP. EVEN AND UNLABORED, LUNG SOUNDS ARE DIMINISHED IN THE BASES, ABD DISTENDED AND SOFT WITH ACTIVE BOWEL SOUNDS, STRONG RADIAL PULSES, WEAK PEDAL PULSES, 20G RAC IV SL, PT ORIENTED TO THE ROOM AND CALL QUIROGA SYSTEM, SAFETY MEASURES REINFORCED, CALL QUIROGA WITHIN REACH
[2024-12-27] MEDS ORDERED: AZITHROMYCIN 500 MG in SODIUM CHLORIDE 0.9% 500 ML IV SCH (18:00)
--- NOTE | 2024-12-27 20:44 | NUR ---
PATIENT ASSSITED OOB TO THE BSC TO VOID YELLOW URINE AND THEN BACK TO BED. PATIENT WITH O2 VIA NASAL CANNULA IN PLACE-PATIENT DOES STATE THAT SHE DOES HAVE HOME O2 AND USES IT PRN AT HOME. BP IS ELEVATED AT 192/91 HR-102 AND O2 SAT IS 97% WITH O2 IN PLACE. DR. NG CALLED WITH BP STAUS-RECEIVED ORDER FOR LABETALOL 10MG IVP Q6H SBP GREATER THAN 160. ALSO RECEIVED ORDER FOR TELE. WILL MEDICATE WHEN PROFILE ON EMAT AND GET TELE ORDERED. CALL LIGHT IN REACH. WILL CONT TO MONITOR.
[2024-12-27] MEDS ORDERED: LABETALOL HCL 20 MG/ 4 ML CARTRG IV PRN (20:45)
[2024-12-27] MEDS ORDERED: ENOXAPARIN SODIUM 40 MG/0.4 ML SYR SC SCH (21:00)
--- NOTE | 2024-12-27 21:19 | NUR ---
RESTING IN BED-O2 VIA NASAL CANNULA IN PLACE. SLIGHT IMPROVEMENT OF HER HEADACHE SINCE RECIEVING TYLENOL EARLIER. MEDICATED ORDERED WITH LABETALOL 10MG IVP VIA [facility] SITE. TELE MONITOR HAS BEEN PLACE. PATIENT EDUCATED REGUARDING THER USE OF LABETALOL FOR HTN AND THE TELE BOX TO MONITOR HR PER NEW ORDERS. CALL LIGHT IN REACH. WILL CONT TO MONITOR.
[2024-12-28] VITALS (8 sets, daily range): BP systolic 156–174; BP diastolic 61–89
--- NOTE | 2024-12-28 00:20 | NUR ---
Resting in bed no c/o headache O2 [address] NC in [address]. No signs and symptoms of respiratoty distress noted. BP seems to be controlled since received Labetolol. will continue to monitor
--- NOTE | 2024-12-28 04:20 | NUR ---
Patient resting in bed O2 3L via NC in place no signs of repiratory distress noted, No c/o pain. call light within reach will continue moitor.
--- NOTE | 2024-12-28 07:15 | NUR ---
PT LAYING IN LOW FOWLERS POSITION WITH EYES OPEN. PT STATES HAVING A SORE THROAT AND COUGHING MINIMAL YELLOW SPUTUM AND ENCOURAGED TO SPIT IT OUT. PT HAS O2 NC IN PLACE RUNNING AT 3L. PT HAS WHEEZING BREATH SOUNDS IN ALL LUNG MACDONALD. ACTIVE BOWEL SOUNDS IN ALL 4. NORMAL S1, S2 HEART SOUNDS. TELLE IN PLACE. STRONG PEDAL AND RADIAL PULSES. NO S/S OF DISTRESS. NO NEEDS AT THIS TIME. PT BED IN THE LOWEST POSITION AND CALL QUIROGA WITHIN REACH.
[2024-12-28] MEDS ORDERED: ASPIRIN 81 MG/TAB PO SCH (09:00)
[2024-12-28] MEDS ORDERED: hydroCHLOROthiazide 25 MG/TAB PO SCH (09:00)
[2024-12-28] MEDS ORDERED: PANTOPRAZOLE SODIUM Sesquihydr 40 MG/TAB PO SCH (09:00)
[2024-12-28] MEDS ORDERED: ATENOLOL 50 MG/TAB PO SCH (09:00)
--- NOTE | 2024-12-28 12:00 | NUR ---
PT SITTING UP IN BED EATING LUNCH THAT FRIEND BROUGHT. AXO X3. [address] TELLE IN PLACE. PT STATES HEADACHE IS IMPROVING AFTER BEING MEDICATED. NO S/S OF DISTRESS. PT DECLINES ANY NEEDS AT THIS TIME. PT REMINDED OF SAFTEY PRECAUTIONS IN PLACE AND TO CALL THE NURSE FOR ASSISTANCE TO THE BSC WHEN READY. CALL QUIROGA WITHIN REACH.
--- NOTE | 2024-12-28 14:37 | NUR ---
PT HAD ELEVATED BLOOD PRESSURE OF 164/66. ARCELIA KHALIL ADMINISTED LABETALOL. WILL CONTINUE TO MONITOR.
--- NOTE | 2024-12-28 16:00 | NUR ---
PT LAYING IN LOW FOWLERS POSITION WITH EYES OPEN. O2 NC IN PLACE. PT RESP ARE UNLABORED WITH VERY MINIMAL YELLOW SPUTUM PRODUCTIVE COUGH. PT'S BLOODPRESSURE IS ELEVATED, MEDICATED AND WILL CONTINUE TO MONITOR. PT DECLINES ANY NEEDS AT THIS TIME. BED IN THE LOWEST POSITION AND CALL QUIROGA WITHIN REACH. REEDUCATED PATIENT TO USE THE CALL LIGHT BEFORE TRYING TO AMBULATE.
[2024-12-28] MEDS ORDERED: amLODIPine BESYLATE 5 MG/TAB PO SCH (16:15)
[2024-12-28] MEDS ORDERED: hydrALAZINE HCL 20 MG/ML VIAL(1 ML) IV PRN (16:15)
[2024-12-28] MEDS ORDERED: AZITHROMYCIN 500 MG in SODIUM CHLORIDE 0.9% 500 ML IV SCH (18:00)
[2024-12-28] MEDS ORDERED: AZITHROMYCIN 500 MG in SODIUM CHLORIDE 0.9% 250 ML IV SCH (18:00)
--- NOTE | 2024-12-28 20:00 | NUR ---
RECEIVED REPORT FROM NURSE DANIEL, PATIENT RESTING IN BED, ON O2 @ 3LPM VIA NC, EXERTIONAL DYSPNEA NOTED COUGHING NON PRODUCTIVE, DIMINISED LUNG SOUND, PRN APRESOLINE GIVEN, PATIENT ON ISOLATION, ON TELEMETRY [facility] PAC [id number], PATIENT ASSISTED TO THE BATHROOM, ASSISTED BATH N BED, CALL LIGHT WITHIN REACHED.
[2024-12-28] MEDS ORDERED: rOPINIRole Hydrochloride 0.5 MG/TAB PO SCH (21:10)
[2024-12-29] VITALS (11 sets, daily range): BP systolic 146–195; BP diastolic 61–90
--- NOTE | 2024-12-29 01:30 | NUR ---
PATIENT RESTING IN BED REMAINS ON O2 @ 3LPM VIA NC, NOT IN DISTRESS, BP ELEVATED PRN HYDRALAZINE GIVEN WILL RECHECK BP.
--- NOTE | 2024-12-29 02:15 | NUR ---
BP RECHECKED RECORDED,
--- NOTE | 2024-12-29 03:38 | NUR ---
[facility] REQUESTED TYLENOL FOR RESTLESS LEG, PS 01/19, REMAINS ON O2 @3LPM VIA NC, PUREWICK IN PLACED.
--- NOTE | 2024-12-29 04:00 | NUR ---
ABIMAEL STATED THAT FEELS TYLENOL STILL ON HER THROAT, PATIENT NOT IN DISTRESS, AMND IS TALKING AND SPO2 98%. PATIENT ASSISTED TO SIT UP OFFERED WATER AND PUDDING AND APPLE SAUCE, ABLE TO FINISHED BOTH APPLE SAUCE AND PUDDING WITHOUT COUGHING OR CHOKING, ANOTHER NURSE CALLED AND ASSESSED PATIENT PATIENT STATED THAT ALREADY WENT DOWN, PATIENT NOT IN DSITRESS, CALL LIGHT IN RAECHED.
--- NOTE | 2024-12-29 07:15 | NUR ---
BEDSIDE REPORT RECEIVED FROM DYLON. PT SEEN SITTING UP IN BED WATCHING TV WITHOUT COMPLAINTS. CALL LIGHT IN REACH. WILL MONITOR.
[2024-12-29] MEDS ORDERED: Zaleplon 5 MG/CAP PO PRN (08:30)
[2024-12-29] MEDS ORDERED: ALPRAZolam 0.25 MG PO PRN (08:30)
[2024-12-29 08:58] LABS: BASO% 0.2 % (0-3); HEMATOCRIT 33.3 % (37.0-47.0); HEMOGLOBIN 11.5 g/dl (12.0-16.0); IMMATURE GRANULOCYTES 0.5 % (0.0-5.0); LYMPH% 9.1 % (15-41); MEAN CELL VOLUME 100.9 fL CALC (80.0-100.0); MEAN CORPUSCULAR HGB 34.8 pG CALC (26.0-32.0); MEAN CORPUSCULAR HGB CONC 34.5 g/dL CAL (32.0-36.0); MONO% 8.2 % (2-13); NEUT# 8.79 thou/uL (2.00-7.15); RED BLOOD COUNT 3.3 mill/uL (4.20-5.60); RED CELL DISTRI WIDTH 13.3 % (11.5-15.5)
[2024-12-29 09:17] LABS: ALBUMIN 3.9 g/dL (3.2-5.0); BILIRUBIN, TOTAL 0.5 mg/dL (0.02-1.3); CREATININE 0.7 mg/dL (0.5-1.0); MAGNESIUM 1.7 mg/dL (1.6-2.3); POTASSIUM 3.5 mmol/l (3.5-5.1); TOTAL PROTEIN 6.7 g/dL (6.3-8.2)
--- NOTE | 2024-12-29 12:00 | NUR ---
PT REPOSITIONED AFTER GETTING UP TO BSC TO VOID AND DENIES PAIN. INDICATED XANAX HELPED WITH RESTLESSNESS. BP IMPROVED AFTER HYDRALAZINE. WILL CONTINUE TO MONITOR.
[2024-12-29] MEDS ORDERED: ACETAMINOPHEN325 MG PO (12:52)
--- NOTE | 2024-12-29 18:30 | NUR ---
PT RESTED IN BED AND GETTING TO BSC TO VOID THROUGHOUT DAY TO HELP WITH ACTIVITY AND STRENGTHENING. PT HAD HER AND SISTER VISIT TODAY WELL. PT BEGAN FEELING BETTER TOWARDS END OF SHIFT DUE TO RESTFUL NAP AND ADDED XANAX. CALL LIGHT MAINTAINED IN REACH THROUGHOUT SHIFT WELL BED ALARM.
--- NOTE | 2024-12-29 23:33 | NUR ---
PT. resting in bed no c/o pain or any discomfort . no s/s of distress. will continue to monitor.
[2024-12-30] VITALS (7 sets, daily range): BP systolic 131–195; BP diastolic 51–88
--- NOTE | 2024-12-30 00:29 | NUR ---
Patient resting in bed Blood pressure elevated 195/88 10 mg of hydralazine IV give will reassess in an hour. No c/o pain or any discomfort call light within reach will continue to monitor
--- NOTE | 2024-12-30 01:13 | NUR ---
Pt blood pressure reassessment 134/73 pulse 74 1 hour after Hydaralazine 10 mg IV given. Pt resting in bed no distress or discomfort noted. Will continue to monitor.
[2024-12-30 04:54] LABS: ALBUMIN 3.4 g/dL (3.2-5.0); BILIRUBIN, TOTAL 0.4 mg/dL (0.02-1.3); CREATININE 0.9 mg/dL (0.5-1.0); MAGNESIUM 1.9 mg/dL (1.6-2.3); POTASSIUM 3.8 mmol/l (3.5-5.1); TOTAL PROTEIN 5.9 g/dL (6.3-8.2)
[2024-12-30 05:04] LABS: BASO% 0.2 % (0-3); EOS% 0.1 % (0-8); HEMATOCRIT 31.9 % (37.0-47.0); HEMOGLOBIN 10.5 g/dl (12.0-16.0); IMMATURE GRANULOCYTES 0.7 % (0.0-5.0); LYMPH% 8.2 % (15-41); MEAN CELL VOLUME 104.6 fL CALC (80.0-100.0); MEAN CORPUSCULAR HGB 34.4 pG CALC (26.0-32.0); MEAN CORPUSCULAR HGB CONC 32.9 g/dL CAL (32.0-36.0); MONO% 8.9 % (2-13); NEUT# 7.11 thou/uL (2.00-7.15); NEUT% 81.9 % (42-76); RED BLOOD COUNT 3.05 mill/uL (4.20-5.60); RED CELL DISTRI WIDTH 13.4 % (11.5-15.5)
--- NOTE | 2024-12-30 05:08 | NUR ---
Pt resting in bed the 0400 oclock BP elevated 173/79 Labetalol 10 mg IV given will reassess in an hour. Will continue to monitor.
--- NOTE | 2024-12-30 05:52 | NUR ---
Reassessment of blood pressure is 135/56 and pulse 100 call light withi reach will continue to monitor.
--- NOTE | 2024-12-30 07:39 | NUR ---
patient a/o x3; on 3l ; breathing unlabored and evenat this time, patient states sometimes she does feel that she have labored breathing but not at this time; denied any n/d/v at this time; dnied any pain; bsc within reach, writter assted to bsc; head to toe completed; iv site clean and intact saline locked at this time, gabbie chidi in bed in semi rodríguez postion eating breakfast; call light within reach,yeimi;carrie understanding on how to use, personal items within reach; bed in lowest postion; bed in lowest postiom;saftey measures in place
[2024-12-30] MEDS ORDERED: ESCITALOPRAM 10 MG/TAB PO SCH (09:00)
--- NOTE | 2024-12-30 12:50 | NUR ---
gabbie requested to talked to provider about poss discharge, patient been wanting to leave first thing to [facility] to get her mri completed, but we have reminded patiet that she have covid and its unlikely they will completed it, provider will talk to patient and her family
[2024-12-30] MEDS ORDERED: DOXYCYCLINE100 MG PO (13:43)
[2024-12-30] MEDS ORDERED: PREDNISONE10 MG PO (14:17)
--- NOTE | 2024-12-30 16:15 | NUR ---
IV site discontinued, cath intact. No edema , no redness, voices no discomfort. Discharge instructions given. Patient verbalizes understanding of same. Discharged in stable condition via Wheelchair to Home with family. All belongings sent with pt.
--- NOTE | 2025-01-02 10:15 | NUR ---
Discharge follow up call completed 01/02/25. Patient states she is improving but is still coughing and weak. Patient is taking prescribed medication as directed. Patient has a follow up appointment with her oncologist and with her PCP on 01/05/25. No needs or concerns verbalized by patient at this time.
== END 2024-12-30 16:10 | disposition home or self-care (01) | DRG 177 ==
LOC: ED 14:35 → ED-I 16:30 → ED 16:38 → MS2 16:39
PROVIDERS: Clinical Nurse Specialist Emergency; Nurse Practitioner Family; ADMIT Internal Medicine; ATTEND Internal Medicine
DX: U07.1 COVID-19 (principal); J12.82 Pneumonia due to coronavirus disease 2019; J44.0 Chronic obstructive pulmonary disease with (acute) lower respiratory infection; R09.02 Hypoxemia; I10 Essential (primary) hypertension; K21.9 Gastro-esophageal reflux disease without esophagitis; E78.00 Pure hypercholesterolemia, unspecified; M89.9 Disorder of bone, unspecified; Z85.3 Personal history of malignant neoplasm of breast; Z99.81 Dependence on supplemental oxygen
CPT/HCPCS: J0360; J0456; J0696; J1650